=== PATIENT | female | born 1985 | race Hispanic/Latino ===

== ENCOUNTER 2023-05-13 09:58 | Day surgery (SDC) | payer OTHER ==
[2023-05-11 11:12] VITALS: BP 119/89; PULSE 80; RESP 20
[~2023-05-13] VITALS: Ht 167.6 cm; Wt 145.1 kg
[~2023-05-13 09:58] MED LIST: DULO30CA52 PO; GABA-529 PO; HUMLIS7525 SQ; LEVO75CA5 PO; METF-446 PO
[2023-05-13 10:16] VITALS: BP 110/71; PULSE 108; RESP 17
[2023-05-13] MEDS ORDERED: PROPOFOL 10 MG/ML 20ML VIAL IV ONE (13:02)
[2023-05-13] MEDS ORDERED: LIDOCAINE HCL 1% 20 ML VIAL ONE (13:02)
[2023-05-13] MEDS ORDERED: ONDANSETRON 4MG INJ ONE (13:29)
[2023-05-13] MEDS ORDERED: KETAMINE 50MG/ML SYRINGE 50 MG/ML DISP.SYRIN ONE (13:36)
== END 2023-05-13 14:10 | disposition home or self-care (01) ==
LOC: ENDO 09:58 → DAH 09:58 → ENDO 14:10
PROVIDERS: ATTEND Surgery
DX: R12 Heartburn (principal); Z20.822 Contact with and (suspected) exposure to COVID-19; K21.9 Gastro-esophageal reflux disease without esophagitis; K29.50 Unspecified chronic gastritis without bleeding; K22.89 Other specified disease of esophagus; E66.01 Morbid (severe) obesity due to excess calories; K76.0 Fatty (change of) liver, not elsewhere classified; E11.9 Type 2 diabetes mellitus without complications; M79.7 Fibromyalgia; E78.00 Pure hypercholesterolemia, unspecified; E03.9 Hypothyroidism, unspecified; Z79.890 Hormone replacement therapy; Z79.4 Long term (current) use of insulin; Z68.43 Body mass index [BMI] 50.0-59.9, adult
CPT/HCPCS: 84703; 87426; 36415; 82948; 88305; 88312; 43239; J2704; J2405; J3490; A4620; A4215 ×2; A4223; A4657 ×2; A7002; A4222; A4221; A4663; J7030; A4606